=== PATIENT | female | born 2000 | race Caucasian/White ===

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

== ENCOUNTER 2020-01-29 22:03 | Emergency (ER) | payer MEDICAID ==
--- NOTE | 2020-01-29 22:40 | EDM.PDOC ---
ED HPI GENERAL MEDICAL PROBLEM - General Chief Complaint: Gastrointestinal Problem Stated Complaint: VOMITING,ABDOMINAL PAIN Time Seen by Provider: 01/29/20 22:20 Source of Information: Reports: Patient History Limitations: Reports: No Limitations - History of Present Illness INITIAL COMMENTS - FREE TEXT/NARRATIVE: 19-year-old female with chronic nausea vomiting, tonight had emesis after yogurt which is very unusual for her so she came in to be checked. No fevers or chills, she is somewhat tachycardic and feels weak and woozy. No fevers or chills. No diarrhea. She is scheduled for a hysterectomy in 3 weeks. She has chronic endometriosis. In reviewing her medications she is on a fairly potent combination of antipsychotics and recently started mirtazapine. Onset: Unknown/Unsure (Symptoms have been waxing and waning for at least a month) Associated Symptoms: Reports: Malaise, Nausea/Vomiting, Other (Lower abdominal pain) - Related Data Allergies Allergy/AdvReac Type Severity Reaction Status Date / Time bee venom protein (honey bee) Allergy Swelling Verified 09/23/19 14:37 Penicillins Allergy Rash Verified 09/23/19 14:37 Home Meds: Home Meds lamoTRIgine 200 mg PO DAILY 09/19/17 [History] DULoxetine HCl [Duloxetine HCl] 60 mg PO DAILY 12/17/18 [History] Diclofenac Sodium [Voltaren] 50 mg PO BID 12/17/18 [History] Fluticasone Propionate [Flonase Allergy Relief] 1 spray NS BID 12/17/18 [History] Gabapentin [Neurontin] 600 mg PO BEDTIME 12/17/18 [History] Prazosin HCl [Prazosin] 2 mg PO BEDTIME 12/17/18 [History] Diclofenac Sodium [Voltaren] 75 mg PO ASDIRECTED PRN 12/20/18 [History] OLANZapine [Olanzapine] 10 mg PO BID 04/17/19 [History] Mirtazapine 7.5 mg PO DAILY 01/29/20 [History] Ondansetron [Zofran ODT] 4 mg PO ASDIRECTED PRN 01/29/20 [History] Sertraline [Zoloft] 25 mg PO DAILY 01/29/20 [History] Past Medical History HEENT History: Reports: Impaired Vision Gastrointestinal History: Reports: Chronic Constipation, Other (See Below) Other Gastrointestinal History: "fatty liver disease" Genitourinary History: Reports: None [employer] History: Reports: , Spontaneous Musculoskeletal History: Reports: Fibromyalgia Neurological History: Reports: Seizure Psychiatric History: Reports: Anxiety, Bipolar, Depression, PTSD, Other (See Below) Other Psychiatric History: boarderline personaliy disorder Endocrine/Metabolic History: Reports: Obesity/BMI 30+ Immunologic History: Reports: SLE - Infectious Disease History Infectious Disease History: Reports: Chicken Pox - Past Surgical History HEENT Surgical History: Reports: None GI Surgical History: Reports: None Female Surgical History: Reports: Breast Reduction Endocrine Surgical History: Reports: None Neurological Surgical History: Reports: None Musculoskeletal Surgical History: Reports: None Social & Family History - Family History Family Medical History: Unobtainable Psychiatric: Reports: Anxiety, Depression - Caffeine Use Caffeine Use: Reports: Coffee - Recreational Drug Use Recreational Drug Use: No ED ROS GENERAL - Review of Systems Review Of Systems: See Below Constitutional: Reports: Malaise, Decreased Appetite. Denies: Fever, Chills HEENT: Denies: Throat Pain, Vision Change Respiratory: Denies: Shortness of Breath Cardiovascular: Reports: Palpitations. Denies: Chest Pain GI/Abdominal: Reports: Abdominal Pain, Nausea, Vomiting. Denies: Constipation, Diarrhea Skin: Reports: No Symptoms Neurological: Reports: Dizziness, Weakness Psychiatric: Reports: Anxiety ED EXAM, GENERAL - Physical Exam Exam: See Below Exam Limited By: No Limitations General Appearance: Alert, No Apparent Distress, Other (Looks completely comfortable, she is tachycardic with a pulse of 140-160) Eye Exam: Bilateral Eye: Normal Inspection (No jaundice) Throat/Mouth: Normal Inspection Head: Atraumatic Neck: Supple, Non-Tender Respiratory/Chest: Lungs Clear Cardiovascular: Regular Rate, Rhythm, Tachycardia GI/Abdominal: Soft, Tender (There is some tenderness to palpation across the lower abdomen, the upper abdomen is nontender. She is morbidly obese.) Neurological: Alert, Oriented, No Motor/Sensory Deficits Psychiatric: Normal Affect, Normal Mood Skin Exam: Warm, Dry Course - Vital Signs Last Recorded V/S: Last Vital Signs Temp 97.9 F 01/29/20 22:31 Pulse 124 H 01/29/20 23:47 Resp 20 01/29/20 23:47 BP 131/77 01/29/20 23:47 Pulse Ox 99 01/29/20 23:05 - Orders/Labs/Meds Orders: Active Orders 24 hr Category Date Time Status Sodium Chloride 0.9% [Normal Saline] 1,000 ml Med 01/29/20 22:45 Active IV ASDIRECTED Medication Orders Sodium Chloride (Normal Saline) 1,000 mls @ 1,000 mls/hr IV ASDIRECTED SHAILESH Last Admin: 01/29/20 22:52 Dose: 1,000 mls/hr Documented by: [id number] Labs: Laboratory Tests 01/29/20 01/29/20 01/29/20 Range/Units 22:50 22:50 23:48 WBC 11.1 H (4.5-11.0) K/uL RBC 5.51 H (3.30-5.50) M/uL Hgb 13.4 (12.0-15.0) g/dL Hct 42.4 (36.0-48.0) % MCV 77 L (80-98) fL MCH 24 L (27-31) pg MCHC 32 (32-36) % Plt Count 401 H (150-400) K/uL Neut % (Auto) 59 (36-66) % Lymph % (Auto) 30 (24-44) % [place] % (Auto) 8 H (2-6) % Eos % (Auto) 2 (2-4) % Baso % (Auto) 1 (0-1) % Sodium 140 (140-148) mmol/L Potassium 3.5 L (3.6-5.2) mmol/L Chloride 104 (100-108) mmol/L Carbon Dioxide 24 (21-32) mmol/L Anion Gap 15.5 H (5.0-14.0) mmol/L BUN 4 L D (7-18) mg/dL Creatinine 0.9 (0.6-1.0) mg/dL Est Cr Clr Drug Dosing 94.12 mL/min Estimated GFR (MDRD) > 60 (>60) Glucose 106 (74-106) mg/dL Calcium 8.8 (8.5-10.1) mg/dL Total Bilirubin 0.3 (0.2-1.0) mg/dL AST 38 H (15-37) U/L ALT 82 H (12-78) U/L Alkaline Phosphatase 122 H (46-116) U/L Total Protein 7.3 (6.4-8.2) g/dL Albumin 3.4 (3.4-5.0) g/dL Globulin 3.9 H (2.3-3.5) g/dL Albumin/Globulin Ratio 0.9 L (1.2-2.2) Lipase 64 L (73-393) U/L TSH, Ultra Sensitive 2.346 (0.358-3.740) uIU/mL Urine Color Yellow (YELLOW) Urine Appearance Clear (CLEAR) Urine pH 6.0 (5.0-8.0) Ur Specific [place] 1.015 (1.008-1.030) Urine Protein Negative (NEGATIVE) mg/dL Urine Glucose (UA) Negative (NEGATIVE) mg/dL Urine Ketones Negative (NEGATIVE) mg/dL Urine Occult Blood Trace-intact H (NEGATIVE) Urine Nitrite Negative (NEGATIVE) Urine Bilirubin Negative (NEGATIVE) Urine Urobilinogen 0.2 (0.2-1.0) EU/dL Ur Leukocyte Esterase Negative (NEGATIVE) Urine RBC 0-5 (0-5) Urine WBC 0-5 (0-5) Ur Epithelial Cells Few Amorphous Sediment Not seen Urine Bacteria Few Urine Mucus Not seen Meds: Medications Generic Name Dose Route Start Last Admin Trade Name Freq PRN Reason Stop Dose Admin Sodium Chloride 1,000 mls @ 1,000 mls/hr 01/29/20 22:45 01/29/20 22:52 Normal Saline IV 1,000 mls/hr ASDIRECTED [facility] Administration - Re-Assessments/Exams Free Text/Narrative Re-Assessment/Exam: 01/29/20 23:03 An IV was started and the patient will be hydrated with 1 L of normal saline, CBC, CMP, lipase and TSH will be checked. 01/29/20 23:56 Labs were all unremarkable, TSH was normal. Pulse went down to 112 after 1 liter of fluid. UA is pending 01/30/20 00:01 UA is normal with a specific gravity of 1.015. No additional fluids I think would be beneficial. Patient was encouraged to increase diet as tolerated and recheck with her primary provider next week. 01/30/20 00:07 Patient was in the emergency room for over 2 hours and had no visible symptoms of illness such as nausea or vomiting. She played on her phone and visited with her significant other as well as repeatedly asked for something to drink. Departure - Departure Time of Disposition: 00:20 Disposition: Home, Self-Care 01 Clinical Impression: Dehydration, mild Nausea & vomiting Qualifiers: Vomiting type: unspecified Vomiting Intractability: non-intractable Qualified Code(s): R11.2 - Nausea with vomiting, unspecified - Discharge Information Instructions: Nausea and Vomiting, Adult Referrals: PCP,None [Primary Care Provider] - Forms: ED Department Discharge Care Plan Goals: Continue your current medications, concentrate on staying hydrated with water and fluids, and increase activity and diet as tolerated. Recheck this week with your primary provider if not improving satisfactorily. Sepsis Event Note (ED) - Evaluation Sepsis Screening Result: No Definite Risk - Focused Exam Vital Signs: Vital Signs Temp Pulse Resp BP Pulse Ox 01/29/20 23:47 124 H 20 131/77 01/29/20 23:05 146 H 24 H 166/92 H 99 01/29/20 22:31 97.9 F 154 H 25 H 157/80 H 96 01/29/20 22:19 97.9 F 154 H 25 H 157/80 H 96 - My Orders Last 24 Hours: My Active Orders 01/29/20 22:45 Sodium Chloride 0.9% [Normal Saline] 1,000 ml IV ASDIRECTED - Assessment/Plan Last 24 Hours: My Active Orders 01/29/20 22:45 Sodium Chloride 0.9% [Normal Saline] 1,000 ml IV ASDIRECTED
[2020-01-29] MEDS ORDERED: Sodium Chloride 0.9% 1,000 ML IV SCH (22:45)
[2020-01-29 23:48] VITALS: BP 131/77; PULSE 124
== END 2020-01-30 00:16 | disposition home or self-care (01) ==
LOC: JP.ED 22:03
DX: E86.0 Dehydration (principal); R11.2 Nausea with vomiting, unspecified; F41.9 Anxiety disorder, unspecified; F31.9 Bipolar disorder, unspecified; R56.9 Unspecified convulsions; E66.01 Morbid (severe) obesity due to excess calories; Z68.54 Body mass index [BMI] pediatric, 95th percentile for age to less than 120% of the 95th percentile for age; Z88.0 Allergy status to penicillin; Z91.030 Bee allergy status; Z79.899 Other long term (current) drug therapy
CPT/HCPCS: 36415; 80053; 81001; 83690; 84443; 85025; 96360; 99284; J7030; 99283

== ENCOUNTER 2021-03-07 01:30 | Emergency (ER) | payer MEDICAID ==
[2021-03-07 01:55] VITALS: PULSE 88
--- NOTE | 2021-03-07 02:37 | EDM.PDOC ---
ED HPI GENERAL MEDICAL PROBLEM - General Chief Complaint: Abdominal Pain Stated Complaint: ABD PAIN Time Seen by Provider: 03/07/21 02:12 Source of Information: Reports: Patient, Old Records History Limitations: Reports: No Limitations - History of Present Illness INITIAL COMMENTS - FREE TEXT/NARRATIVE: 20-year-old female presenting to the ED for evaluation of acute onset of miya ateral low abdominal pain that started around 2300 hrs. tonight. The patient denies any fever or chills. She says she has some burning with urination. The patient has ongoing chronic issues with abdominal pain and nausea. She says that it has been worse over the last 3 weeks. She reports that she has lost 50 pounds since November of this year because she has not had an appetite. She states that she craves Chex mix and NOS energy drinks and that everything also makes her nauseous. Her primary provider is Kiesha Sanchez who she saw last 2 weeks ago when she brought in papers for Social Security disability. Patient has a past medical history significant for mental health issues including PTSD, borderline personality disorder, insomnia, bipolar 2 disorder, OCD, anxiety, and depression. She is ongoing issues with pelvic pain secondary to endometriosis and abnormal uterine bleeding. - Related Data Allergies Allergy/AdvReac Type Severity Reaction Status Date / Time bee venom protein (honey bee) Allergy Swelling Verified 03/07/21 01:48 Penicillins Allergy Rash Verified 03/07/21 01:48 Home Meds: Home Meds Prazosin HCl [Prazosin] 2 mg PO BEDTIME 12/17/18 [History] Diclofenac Sodium [Voltaren] 75 mg PO ASDIRECTED PRN 12/20/18 [History] Acetaminophen/HYDROcodone [HYDROcodone-Acetaminophen 5-325 MG *] 1 tab PO Q6H 03/07/21 [History] Cyclobenzaprine [Flexeril] 10 mg PO DAILY 03/07/21 [History] Dicyclomine [Bentyl] 20 mg PO QID 03/07/21 [History] Past Medical History HEENT History: Reports: Allergic Rhinitis, Impaired Vision Cardiovascular History: Reports: Other (See Below) Other Cardiovascular History: PFL - hole in heart Gastrointestinal History: Reports: Chronic Constipation, Other (See Below) Other Gastrointestinal History: "fatty liver disease" Genitourinary History: Reports: None 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: Endometriosis, Polycystic Ovaries, , Spontaneous Musculoskeletal History: Reports: Arthritis, Back Pain, Chronic, Fibromyalgia Neurological History: Reports: Concussion, Headaches, Chronic, Migraines, Seizure Psychiatric History: Reports: Anxiety, Bipolar, Depression, Eating Disorders, Psych Hospitalization(s), PTSD, Suicide Attempt, Suicidal Ideation, Other (See Below) Other Psychiatric History: boarderline personaliy disorder Endocrine/Metabolic History: Reports: Obesity/BMI 30+ Hematologic History: Reports: Anemia Immunologic History: Reports: SLE - Infectious Disease History Infectious Disease History: Reports: Chicken Pox - Past Surgical History HEENT Surgical History: Reports: None GI Surgical History: Reports: None Other GI Surgeries/Procedures: celiac disease Female Surgical History: Reports: Breast Reduction, Hysterectomy Endocrine Surgical History: Reports: None Neurological Surgical History: Reports: None Musculoskeletal Surgical History: Reports: None Social & Family History - Family History Family Medical History: Unobtainable Psychiatric: Reports: Anxiety, Depression - Tobacco Use Tobacco Use Status *Q: Current Every Day Tobacco User Years of Tobacco use: 3 Packs/Tins Daily: 0.5 - Caffeine Use Caffeine Use: Reports: Coffee - Recreational Drug Use Recreational Drug Use: Yes Drug Use in Last 12 Months: Yes Recreational Drug Type: Reports: Marijuana/Hashish Recreational Drug Use Frequency: Patient Refuses To Answer ED ROS GENERAL - Review of Systems Review Of Systems: See Below Constitutional: Reports: Decreased Appetite, Weight Loss (Patient reports a 50 pound weight loss since November 2020) HEENT: Reports: No Symptoms Respiratory: Reports: No Symptoms Cardiovascular: Reports: No Symptoms Endocrine: Reports: No Symptoms GI/Abdominal: Reports: Abdominal Pain (Bilateral low abdominal and suprapubic pain.), Nausea. Denies: Vomiting : Reports: Dysuria (Burning with urination), Pain (Prepubic pain) Musculoskeletal: Reports: No Symptoms Skin: Reports: No Symptoms Neurological: Reports: No Symptoms Psychiatric: Reports: Anxiety Hematologic/Lymphatic: Reports: No Symptoms Immunologic: Reports: No Symptoms ED EXAM, GI/ABD - Physical Exam Exam: See Below Exam Limited By: No Limitations General Appearance: Alert, No Apparent Distress, Obese Eyes: Bilateral: EOMI Throat/Mouth: Normal Inspection, Normal Oropharynx, Normal Voice, No Airway Co mpromise Head: Normocephalic Respiratory/Chest: No Respiratory Distress, Lungs Clear, Normal Breath Sounds Cardiovascular: Normal Peripheral Pulses, Regular Rate, Rhythm, No Murmur, Other (Loud systolic click) GI/Abdominal Exam: Normal Bowel Sounds, Soft, Tender (Suprapubic tenderness to palpation). No: Guarding, Rebound Back Exam: Normal Inspection, Full Range of Motion Extremities: Normal Inspection Neurological: Alert, Oriented, Normal Cognition, No Motor/Sensory Deficits Psychiatric: Normal Affect, Normal Mood Skin Exam: Warm, Dry Course - Vital Signs Last Recorded V/S: Last Vital Signs Temp 36.8 C 03/07/21 01:55 Pulse 88 03/07/21 04:05 Resp 19 03/07/21 04:05 BP 129/74 03/07/21 04:05 Pulse Ox 97 03/07/21 04:05 - Orders/Labs/Meds Labs: Laboratory Tests 03/07/21 03/07/21 03/07/21 Range/Units 02:24 02:24 02:27 WBC 11.0 (4.5-11.0) K/uL RBC 5.63 H (3.30-5.50) M/uL Hgb 15.5 H D (12.0-15.0) g/dL Hct 44.7 (36.0-48.0) % MCV 79 L (80-98) fL MCH 28 (27-31) pg MCHC 35 (32-36) % Plt Count 359 (150-400) K/uL Neut % (Auto) 51.5 (36-66) % Lymph % (Auto) 36.4 (24-44) % [place] % (Auto) 8.2 H (2-6) % Eos % (Auto) 2.8 (2-4) % Baso % (Auto) 1.1 H (0-1) % Sodium (140-148) mmol/L Potassium (3.6-5.2) mmol/L Chloride (100-108) mmol/L Carbon Dioxide (21-32) mmol/L Anion Gap (5.0-14.0) mmol/L BUN (7-18) mg/dL Creatinine (0.6-1.0) mg/dL Est Cr Clr Drug Dosing Estimated GFR (MDRD) (>60) Glucose (74-106) mg/dL Lactic Acid (0.4-2.0) mmol/L Calcium (8.5-10.1) mg/dL Total Bilirubin (0.2-1.0) mg/dL AST (15-37) U/L ALT (12-78) U/L Alkaline Phosphatase (46-116) U/L Lactate Dehydrogenase (82-234) U/L Total Protein (6.4-8.2) g/dL Albumin (3.4-5.0) g/dL Globulin (2.3-3.5) g/dL Albumin/Globulin Ratio (1.2-2.2) Lipase (73-393) U/L Urine Color Yellow (YELLOW) Urine Appearance Cloudy A (CLEAR) Urine pH 5.5 (5.0-8.0) Ur Specific [place] >= 1.030 (1.008-1.030) Urine Protein Negative (NEGATIVE) mg/dL Urine Glucose (UA) Negative (NEGATIVE) mg/dL Urine Ketones Trace H (NEGATIVE) mg/dL Urine Occult Blood Negative (NEGATIVE) Urine Nitrite Negative (NEGATIVE) Urine Bilirubin Negative (NEGATIVE) Urine Urobilinogen 0.2 (0.2-1.0) EU/dL Ur Leukocyte Esterase Negative (NEGATIVE) Urine RBC 0-5 (0-5) Urine WBC 0-5 (0-5) Ur Epithelial Cells Many Amorphous Sediment Many Urine Bacteria Many Urine Mucus Many SARS-CoV-2 RNA (JORGE) Negative (NEGATIVE) 03/07/21 03/07/21 Range/Units 02:27 02:27 WBC (4.5-11.0) K/uL RBC (3.30-5.50) M/uL Hgb (12.0-15.0) g/dL Hct (36.0-48.0) % MCV (80-98) fL MCH (27-31) pg MCHC (32-36) % Plt Count (150-400) K/uL Neut % (Auto) (36-66) % Lymph % (Auto) (24-44) % [place] % (Auto) (2-6) % Eos % (Auto) (2-4) % Baso % (Auto) (0-1) % Sodium 142 (140-148) mmol/L Potassium 3.9 (3.6-5.2) mmol/L Chloride 107 (100-108) mmol/L Carbon Dioxide 25 (21-32) mmol/L Anion Gap 10.2 (5.0-14.0) mmol/L BUN 7 D (7-18) mg/dL Creatinine 0.7 (0.6-1.0) mg/dL Est Cr Clr Drug Dosing TNP Estimated GFR (MDRD) > 60 (>60) Glucose 103 (74-106) mg/dL Lactic Acid 0.8 (0.4-2.0) mmol/L Calcium 9.0 (8.5-10.1) mg/dL Total Bilirubin 0.3 (0.2-1.0) mg/dL AST 53 H (15-37) U/L ALT 139 H (12-78) U/L Alkaline Phosphatase 93 (46-116) U/L Lactate Dehydrogenase 240 H (82-234) U/L Total Protein 7.0 (6.4-8.2) g/dL Albumin 3.6 (3.4-5.0) g/dL Globulin 3.4 (2.3-3.5) g/dL Albumin/Globulin Ratio 1.1 L (1.2-2.2) Lipase 65 L (73-393) U/L Urine Color (YELLOW) Urine Appearance (CLEAR) Urine pH (5.0-8.0) Ur Specific [place] (1.008-1.030) Urine Protein (NEGATIVE) mg/dL Urine Glucose (UA) (NEGATIVE) mg/dL Urine Ketones (NEGATIVE) mg/dL Urine Occult Blood (NEGATIVE) Urine Nitrite (NEGATIVE) Urine Bilirubin (NEGATIVE) Urine Urobilinogen (0.2-1.0) EU/dL Ur Leukocyte Esterase (NEGATIVE) Urine RBC (0-5) Urine WBC (0-5) Ur Epithelial Cells Amorphous Sediment Urine Bacteria Urine Mucus SARS-CoV-2 RNA (JORGE) (NEGATIVE) Meds: Medications Discontinued Medications Generic Name Dose Route Start Last Admin Trade Name Freq PRN Reason Stop Dose Admin Sodium Chloride 85 mls @ 3.5 mls/sec 03/07/21 03:51 03/07/21 04:00 Normal Saline IV 03/07/21 03:52 3.5 mls/sec ASDIRECTED STA Administration Iopamidol 150 ml 03/07/21 03:50 03/07/21 03:59 Iopamidol 612 Mg/Ml 150 Ml Bottle IV 03/07/21 03:51 150 ml . DIRECTED STA Administration - Re-Assessments/Exams Free Text/Narrative Re-Assessment/Exam: 03/07/21 03:18 patient's labs showing a normal CBC with a leukocyte count of 11, hemoglobin of 15.5, hematocrit of 44.7 and platelet count of 359,000. There is a normal differential on the leukocyte count. The patient's comprehensive metabolic panel is also unremarkable except for elevation of the AST at 53, ALT of 39, normal and alkaline phosphatase at 93 and an LDH of 240. Urinalysis was obtained and was cloudy but showed 0-5 RBCs, 0-5 WBCs, leukocyte and nitrate negative, positive mucus, sediment and bacteria. I do not find anything to account for her low abdominal pain. 03/07/21 05:13 the images of the CT abdomen and pelvis with contrast as well as the report. There were no acute findings to account for the low abdominal pain. At this point, we will put the patient on Zofran for nausea and have her follow-up with her primary care provider. She is scheduled to see Kiesha Sanchez on March 12 (next Thursday. Indications return to the ED were discussed and she is discharged in satisfactory condition. Patient is in agreement with this plan. Departure - Departure Time of Disposition: 05:14 Disposition: Home, Self-Care 01 Clinical Impression: Lower abdominal pain - Discharge Information Instructions: Abdominal Pain, Adult, [id number] Referrals: Kiesha Sanchez CNM [Primary Care Provider] - Forms: ED Department Discharge Care Plan Goals: I have a prescription for you for Zofran for nausea. Please follow-up with Kiesha Sanchez on March 12 as scheduled. Return to the ED should your symptoms worsen or change. Sepsis Event Note (ED) - Evaluation Sepsis Screening Result: No Definite Risk - Focused Exam Vital Signs: Vital Signs Temp Pulse Resp BP Pulse Ox 03/07/21 04:05 88 19 129/74 97 03/07/21 01:55 36.8 C 88 20 122/88 97 03/07/21 01:54 36.8 C 88 20 122/88 97 - Problem List & Annotations (1) Lower abdominal pain SNOMED Code(s): 01062401 Code(s): R10.30 - LOWER ABDOMINAL PAIN, UNSPECIFIED Status: Acute Priority: Medium Current Visit: Yes - Problem List Review Problem List Initiated/Reviewed/Updated: Yes
[2021-03-07] MEDS ORDERED: Iopamidol 612 MG/ML 150 ML Bottle IV STA (03:50)
[2021-03-07 04:25] VITALS: BP 129/74
--- NOTE | 2021-03-07 05:09 | CRLCT ---
For Patients: As a result of the Century Cures Act, medical imaging exams and procedure reports are released immediately into your electronic medical record. You may view this report before your referring provider. If you have questions, please contact your health care provider. INDICATION: Lower abdominal pain TECHNIQUE: Axial images were obtained from the diaphragm to the pubic symphysis. Reformats were obtained in the coronal and sagittal plane. IV Contrast: 150 cc Isovue-300 Oral Contrast: None COMPARISON: Abdomen and pelvis CT 09/23/2019 FINDINGS: Lower chest: Minimal discoid atelectasis left lower lobe. Liver: Diffusely decreased density of the liver with some focal sparing adjacent to the eliana hepatis and gallbladder. Mild hepatomegaly. Gallbladder and bile ducts: Unremarkable. No stones or inflammation. No biliary dilatation. Spleen: Unremarkable. Normal in size without mass. Pancreas: Unremarkable. No mass or inflammation. Adrenal glands: Unremarkable. No nodules. Kidneys: Unremarkable. No masses, stones, or hydronephrosis. Vasculature: Unremarkable. GI tract: The stomach is unremarkable. No dilated loops of large or small intestine. Appendix unremarkable. Pelvis: Status post hysterectomy. Bladder decompressed. Subcentimeter lymph nodes in the perirectal tissues and near the vaginal cuff, likely small lymph nodes. Bones: Unremarkable for age. IMPRESSION: 1. No dilated bowel or localized inflammation. 2. Mild hepatomegaly with hepatic steatosis. 3. Status post hysterectomy. Please note that all CT scans at this facility use dose modulation, iterative reconstruction, and/or weight-based dosing when appropriate to reduce radiation dose to as low as reasonably achievable. Dictated by Keith Otto MD @ 03/07/2021 5:06:59 AM (Electronically Signed)
== END 2021-03-07 05:25 | disposition home or self-care (01) ==
LOC: JP.ED 01:30
DX: R10.31 Right lower quadrant pain (principal); R10.32 Left lower quadrant pain; E66.9 Obesity, unspecified; Z68.30 Body mass index [BMI] 30.0-30.9, adult; Z88.0 Allergy status to penicillin; Z91.030 Bee allergy status; Z72.0 Tobacco use; Z20.822 Contact with and (suspected) exposure to COVID-19
CPT/HCPCS: 36415; 74177; 80053; 81001; 83605; 83615; 83690; 85025; 87635; 99284; Q9967; U0002

== ENCOUNTER 2021-08-22 08:43 | Day surgery (SDC) | payer MEDICAID ==
[2021-08-22] MEDS ORDERED: Sodium Chloride 0.9% 1,000 ML IV SCH (09:30)
[2021-08-22] MEDS ORDERED: Propofol 200 MG/20 ML SDV ONE (09:57)
[2021-08-22] MEDS ORDERED: Midazolam 1 MG/ML 2 ML SDV ONE (09:57)
[2021-08-22] MEDS ORDERED: fentaNYL 100 MCG/2 ML SDV ONE (09:57)
[2021-08-22 11:16] VITALS: BP 113/67; PULSE 75
== END 2021-08-22 11:36 | disposition home or self-care (01) ==
LOC: JP.SDS 08:43
PROVIDERS: ATTEND Surgery
DX: K21.00 Gastro-esophageal reflux disease with esophagitis, without bleeding (principal); E66.9 Obesity, unspecified; Z88.0 Allergy status to penicillin; Z88.8 Allergy status to other drugs, medicaments and biological substances
CPT/HCPCS: 88305; J2250; J2704; J3010; J7030

== ENCOUNTER 2023-01-16 23:15 | Emergency (ER) | payer BC, MEDICAID ==
[2023-01-16 23:49] VITALS: BP 134/92; PULSE 97
[2023-01-17 00:15] LABS: BASOPHILS ABSOLUTE AUTO 0.08 K/uL (0.00-0.10); BASOPHILS PERCENT AUTO 0.8 % (0.1-1.3); EOSINOPHILS ABSOLUTE AUTO 0.23 K/uL (0.00-0.40); EOSINOPHILS PERCENT AUTO 2.2 % (0.0-5.4); HEMATOCRIT 41.4 % (34.3-46.0); HEMOGLOBIN 14.3 g/dL (11.2-15.5); IMMATURE GRAN ABSOLUTE AUTO 0.06 K/uL (0.00-0.23); IMMATURE GRAN PERCENT AUTO 0.6 % (0.0-0.7); LYMPHOCYTES ABSOLUTE AUTO 3.72 K/uL (0.8-3.3); LYMPHOCYTES PERCENT AUTO 35.7 % (11.4-47.7); MEAN CORPUSCULAR HEMOGLOBIN 27.9 pg (31.6-35.5); MEAN CORPUSCULAR HGB CONC 34.5 g/dL (31.6-35.5); MEAN CORPUSCULAR VOLUME 80.7 fL (81.4-99.0); MONOCYTES ABSOLUTE AUTO 0.74 K/uL (0.20-0.90); MONOCYTES PERCENT AUTO 7.1 % (3.3-12.6); NEUTROPHILS ABSOLUTE AUTO 5.59 K/uL (1.0-7.6); NEUTROPHILS PERCENT AUTO 53.6 % (40.0-78.1); PLATELET COUNT,PLT 364 K/uL (130-375); RED BLOOD CELL COUNT 5.13 M/uL (3.77-5.24); WHITE BLOOD CELL COUNT,WBC 10.4 K/uL (3.2-11.0)
[2023-01-17] MEDS ORDERED: Sodium Chloride 0.9% 10 ML Syringe FLUSH ONE (00:27)
[2023-01-17] MEDS ORDERED: Iopamidol 612 MG/ML 100 ML Bottle IV PRN (00:27)
[2023-01-17] MEDS ORDERED: Sodium Chloride 0.9% 50 ML IV SCH (00:30)
[2023-01-17 00:35] LABS: A/G RATIO 1.1 (1.2-2.2); ALANINE AMINOTRANSFERASE,ALT 96 U/L (12-78); ALBUMIN 3.8 g/dL (3.4-5.0); ALKALINE PHOSPHATASE 78 U/L (46-116); ANION GAP 6.6 mmol/L (5.0-14.0); ASPARTATE AMNIOTRANSFERASE,AST 34 U/L (15-37); BILIRUBIN TOTAL 0.3 mg/dL (0.2-1.0); BLOOD UREA NITROGEN,BUN 9 mg/dL (7-18); CALCIUM 9.1 mg/dL (8.5-10.1); CARBON DIOXIDE,CO2 30 mmol/L (21-32); CHLORIDE,CL 103 mmol/L (100-108); CREATININE 0.8 mg/dL (0.6-1.0); EST CRCL DRUG DOSING (CG) 107.26 mL/min; ESTIMATED GFR 107 mL/min (>60); GLUCOSE RANDOM 102 mg/dL (74-106); POTASSIUM,K 3.7 mmol/L (3.6-5.2); PROTEIN TOTAL,TP 7.2 g/dL (6.4-8.2); SODIUM,NA 140 mmol/L (140-148)
== END 2023-01-17 01:20 | disposition home or self-care (01) ==
LOC: JP.ED 23:15
DX: S39.012A Strain of muscle, fascia and tendon of lower back, initial encounter (principal); F17.210 Nicotine dependence, cigarettes, uncomplicated; E66.9 Obesity, unspecified; K21.9 Gastro-esophageal reflux disease without esophagitis; Z86.16 Personal history of COVID-19; Z79.899 Other long term (current) drug therapy; Z88.0 Allergy status to penicillin; Z91.030 Bee allergy status; X50.0XXA Overexertion from strenuous movement or load, initial encounter
CPT/HCPCS: 36415; 74177; 80053; 85025; 99282; 99284; J3490; Q9967